=== PATIENT | male | born 1965 | race Caucasian/White ===

== ENCOUNTER 2021-06-24 17:33 | Emergency (ER) | payer OTHER ==
[2021-06-24 18:08] LABS: BASOPHIL 1.5 % (0-2); EOSINOPHIL 2.5 % (0-5); HCT 45.7 % (42.0-52.0); HGB 15.5 g/dl (13.2-18.0); LYMPHOCYTE 30.1 % (15-48); MCH 30.8 pg (25.0-31.0); MCHC 33.9 g/dL (32.0-36.0); MCV 90.7 fL (78.0-100.0); MONOCYTE 8.8 % (0-12); MPV 10.6 fL (6.0-9.5); NEUTROPHIL 56.4 % (41-80); NRBC 0; PLT 234 K/uL (150-400); RBC 5.04 M/uL (4.70-6.00); WBC 10.6 K/uL (4.0-10.5)
[2021-06-24 18:42] LABS: BUN/CREAT RATIO (CALC) 22.1 RATIO; CREATININE 0.77 mg/dL (0.67-1.17); POTASSIUM 3.9 mmol/L (3.5-5.1)
[2021-06-24 19:56] LABS: BILIRUBIN NEGATIVE (NEGATIVE); BLOOD NEGATIVE Ery/uL (NEGATIVE); CLARITY CLEAR (CLEAR); COLOR YELLOW (YELLOW); GLUCOSE (U) NORMAL (NORMAL); LEUKOCYTES NEGATIVE Leu/uL (NEGATIVE); NITRITE NEGATIVE (NEGATIVE); PROTEIN NEGATIVE (NEGATIVE); SPECIFIC GRAVITY 1.015 (1.001-1.030); pH 5.5 (5.0-9.0)
== END 2021-06-24 21:53 | disposition home or self-care (01) ==
LOC: FER 17:33
PROVIDERS: Emergency Medicine
DX: R42 Dizziness and giddiness (principal); E78.5 Hyperlipidemia, unspecified; E11.9 Type 2 diabetes mellitus without complications; I10 Essential (primary) hypertension; E66.9 Obesity, unspecified
CPT/HCPCS: 36415; 80048; 81003; 85025; 93005

== ENCOUNTER → 2021-10-01 | Day surgery (SDC) | payer MEDICARE, OTHER ==
[~2021-10-01] VITALS: Ht 182.9 cm; Wt 120.2 kg
[~2021-10-01] MED LIST: COREG 6.25MG6.25 MG PO; CRESTOR20 MG PO; CYMBALTA 30MG C30 MG PO; ELAVIL25 MG PO; HUMALOG 75100 UNIT/M SC; LANTUS **100 UNITS/ SC; METFORMIN HCL500 MG PO; NEURONTIN300 MG PO; NEURONTIN400 MG PO; PROTONIX 40MG T40 MG PO; TRULICITY0.75 MG/0. SC
[2021-10-01 11:43] LABS: HCT 40.8 % (42.0-52.0); HGB 13.8 g/dl (13.2-18.0); MCHC 33.8 g/dL (32.0-36.0); MCV 91.7 fL (78.0-100.0); MPV 10.3 fL (6.0-9.5); RBC 4.45 M/uL (4.70-6.00); RDW 12.9 % (11.5-14.0); WBC 9.1 K/uL (4.0-10.5)
[2021-10-01 12:22] LABS: ALBUMIN 3.5 g/dL (3.4-5.0); BILIRUBIN - TOTAL 0.5 mg/dL (0.2-1.0); CREATININE 0.8 mg/dL (0.67-1.17); GLOBULIN (CALCULATION) 3.6 g/dL; TOTAL PROTEIN 7.1 g/dL (6.4-8.2)
== END | disposition home or self-care (01) ==
LOC: FAS 10:00
PROVIDERS: Orthopaedic Surgery
DX: G56.01 Carpal tunnel syndrome, right upper limb (principal); G56.21 Lesion of ulnar nerve, right upper limb
CPT/HCPCS: 36415; 71045; 80053; J0690; J0697; J2250; J2704; J3010; J7120

== ENCOUNTER 2021-10-18 16:04 | Emergency (ER) | payer MEDICARE, OTHER ==
[2021-10-18 17:23] LABS: EOSINOPHIL 1.9 % (0-5); HCT 42.6 % (42.0-52.0); HGB 14.4 g/dl (13.2-18.0); LYMPHOCYTE 18.6 % (15-48); MCH 30.8 pg (25.0-31.0); MCHC 33.8 g/dL (32.0-36.0); MONOCYTE 11.1 % (0-12); MPV 10.7 fL (6.0-9.5); NRBC 0; PLT 178 K/uL (150-400); RBC 4.68 M/uL (4.70-6.00); RDW 13.3 % (11.5-14.0); WBC 13.5 K/uL (4.0-10.5)
[2021-10-18 17:46] LABS: CREATININE 0.94 mg/dL (0.67-1.17)
[2021-10-18 17:50] LABS: LACTIC ACID 2.6 mmol/L (0.4-1.9)
[2021-10-18] MEDS ORDERED: VIBRAMYCIN100 MG PO (21:07)
== END 2021-10-18 22:20 | disposition home or self-care (01) ==
LOC: FER 16:04
PROVIDERS: Nurse Practitioner Family
DX: T81.49XA Infection following a procedure, other surgical site, initial encounter (principal); E11.65 Type 2 diabetes mellitus with hyperglycemia; I10 Essential (primary) hypertension; Z98.890 Other specified postprocedural states; Z79.82 Long term (current) use of aspirin; Z79.84 Long term (current) use of oral hypoglycemic drugs; Z79.899 Other long term (current) drug therapy; Y83.8 Other surgical procedures as the cause of abnormal reaction of the patient, or of later complication, without mention of misadventure at the time of the procedure
CPT/HCPCS: 36415; 80048; 83605; 84145; 85025; 87040; 93971; J2543; J7030